=== PATIENT | male | born 1990 | race Caucasian/White ===

== ENCOUNTER → 2016-12-30 | Outpatient (REF) ==
--- NOTE | 2016-12-30 10:09 | DI ---
EXAM: PA and lateral views of the chest HISTORY: Annual physical screening COMPARISON: 01/29/2016 FINDINGS: No focal consolidation, pleural effusion or pneumothorax is identified. The cardiomediastinal silhouette is within normal limits. IMPRESSION: No acute cardiopulmonary findings.
== END ==
LOC: RAD 09:48
DX: Z02.89 Encounter for other administrative examinations (principal)